=== PATIENT | male | born 1980 | race Caucasian/White ===

== ENCOUNTER 2018-01-03 20:20 | Emergency (ER) | payer BC ==
[2018-01-03] MEDS ORDERED: HYDROcodone/Acetaminophen 10/325 mg Tablet ONE (20:37)
[2018-01-03] MEDS ORDERED: Silver Sulfadiazine 1% Cream 50 GM JAR ONE (20:38)
== END 2018-01-03 21:00 | disposition home or self-care (01) ==
LOC: SCSER 20:20
DX: T21.21XA Burn of second degree of chest wall, initial encounter (principal); L55.0 Sunburn of first degree; Z87.891 Personal history of nicotine dependence; X11.8XXA Contact with other hot tap-water, initial encounter
CPT/HCPCS: 16020